=== PATIENT | female | born 1940 | race Caucasian/White ===

== ENCOUNTER → 2019-09-12 09:44 | Outpatient (CLI) | payer MEDICARE, SELFPAY ==
--- NOTE | ~2019-09-12 | XR_ITS ---
XR knee LT 3V 09/12/2019 10:28 INDICATION: Left knee pain PROCEDURE: 3 views left knee COMPARISON: No prior studies for comparison. FINDINGS: Fracture, dislocation or subluxation is not identified. The soft tissues appear within norm al limits. No foreign bodies are identified. Osteopenia. No significant joint effusion. There are ex tensive atherosclerotic changes. IMPRESSION: 1: NO ACUTE BONE OR JOINT ABNORMALITY IDENTIFIED. Reviewed, dictated and finalized at location B. RIALS INTERN
--- NOTE | ~2019-09-12 | XR_ITS ---
EXAMINATION: XR toe 1st RT min 2V EXAM DATE: 09/12/2019 10:28 INDICATION: Initial encounter following injury, with pain of the right first toe. TECHNIQUE: Right first toe frontal, lateral and oblique projections obtained and reviewed. There i s no prior study for comparison. FINDINGS: Bones are osteopenic. Please note that osteopenia limits sensitivity for detecting fractu res by radiographs. There is soft tissue swelling over the medial aspect of the foot. No definite acu te fracture identified. IMPRESSION: Osteopenia limiting sensitivity but no definite acute fracture identified. Soft tissue s welling. Follow-up can be obtained if symptoms persist. Reviewed, dictated and finalized at location A. [employer]ISOR COUNSELING AND GUIDANCE IMPRESSION: Osteopenia limiting sensitivity but no definite acute fracture tulio ntified. Soft tissue swelling. Follow-up can be obtained if symptoms persist.
== END ==
PROVIDERS: PCP Family Medicine; Visit Provider Physician Assistant
DX: M79.674 Pain in right toe(s) (principal); M25.562 Pain in left knee
CPT/HCPCS: 73562; 73660

== ENCOUNTER 2020-01-08 15:42 | Outpatient (CLI) | payer MEDICARE, SELFPAY ==
--- NOTE | ~2020-01-08 | XR_ITS ---
EXAMINATION: XR toe 1st RT min 2V INDICATION: Right first toe pain TECHNIQUE: Three views of the right first toe are obtained. COMPARISON: 09/12/2019 FINDINGS: Sensitivity for fracture is significantly limited by osteopenia. However, there is a suspec marlena nondisplaced fracture of the shaft of the first proximal phalanx. 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 IMPRESSION: 1. Possible nondisplaced fracture of the first proximal phalanx, sensitivity limited by osteopenia. Reviewed, dictated and finalized at location A. IMPRESSION: 1. Possible nondisplaced fracture of the first proximal phalanx, sensitivity li mited by osteopenia.
== END 2020-01-08 15:43 | disposition home or self-care (01) ==
PROVIDERS: PCP Family Medicine; Visit Provider Physician Assistant
DX: M79.674 Pain in right toe(s) (principal)
CPT/HCPCS: 73660

== ENCOUNTER → 2020-11-13 06:37 | Outpatient (CLI) | payer MEDICARE, SELFPAY ==
[2020-11-14 14:53] LABS: SARS-CoV-2 RNA PCR Negative
== END ==
PROVIDERS: PCP Family Medicine; Visit Provider Family Medicine
DX: Z20.822 Contact with and (suspected) exposure to COVID-19 (principal); R05 Cough
CPT/HCPCS: C9803; U0003; U0005

== ENCOUNTER 2021-04-03 14:28 | Emergency (ER) | payer MEDICARE, SELFPAY ==
--- NOTE | ~2021-04-03 | CT_ITS ---
EXAMINATION: CT lumbar spine wo con DATE: 04/03/2021 15:04 INDICATION: Low back pain post fall TECHNIQUE: Computed tomography (CT) of the lumbar spine was performed without intravenous contrast. A utomated exposure control and iterative reconstruction technique were employed. The dose-length produ ct was 429.90 mGy-cm. COMPARISON: None FINDINGS: Alignment is normal. Acute appearing L3 burst fracture with one third anterior and central vertebral body height loss and with 3 mm retropulsion. Remaining vertebral body heights are normal. Disc height s are normal. Emphysema at the visualized lung bases. There is calcified atherosclerosis of the aorta and many of the other arteries. Uterine fibroids including a coarsely calcified degenerated fibroid. The following disc levels are specifically discussed: T11-T12: The disc does not extend beyond the endplate margin. There is mild bilateral facet joint ost eoarthritis. There is no neural foraminal stenosis. There is no central canal stenosis. T12-L1: Disc is bulging. There is mild bilateral facet joint osteoarthritis. There is minimal bilater al neural foraminal stenosis. There is mild central canal stenosis. L1-L2: Disc is bulging. There is mild bilateral facet joint osteoarthritis. There is mild bilateral n eural foraminal stenosis. There is mild to moderate central canal stenosis. L2-L3: Disc is bulging. There is mild right and moderate left facet joint osteoarthritis. There is mi ld bilateral neural foraminal stenosis. There is mild central canal stenosis. L3-L4: Disc is bulging There is mild right and moderate left facet joint osteoarthritis. There is mil d bilateral neural foraminal stenosis. There is mild central canal stenosis. L4-L5: Disc is bulging. There is hypertrophy of the ligamentum flavum. There is mild left and mild to moderate right facet joint osteoarthritis. There is mild bilateral neural foraminal stenosis. There is moderate central canal stenosis. L5-S1: Central disc protrusion. There is mild bilateral facet joint osteoarthritis. There is no neura l foraminal stenosis. There is no central canal stenosis. IMPRESSION: 1. Acute L3 burst fracture with 30% anterior vertebral body height loss. 2. Mild lumbar spondylosis. 3. Emphysema. 4. Fibroid uterus. Reviewed, dictated and finalized at location A.
--- NOTE | ~2021-04-03 | XR_ITS ---
EXAMINATION: XR wrist LT min 3V DATE: 04/03/2021 15:09 INDICATION: Left wrist pain post fall TECHNIQUE: Posteroanterior, ulnar deviation, oblique, and lateral views of the left wrist were obtain ed. COMPARISON: none FINDINGS: Chronic appearing fracture deformity of the distal left radius with 5 degree dorsal tilt of the dista l articular surface. No acute fracture identified. Small corticated ossicle near the tip of the ulnar styloid process which could be either degenerative or heterotopic ossicles related to chronic soft t issue injury potentially triangular fiber cartilage complex. Mild polyarticular osteoarthritis at the distal radioulnar, wrist, midcarpal, first carpometacarpal at each of the metacarpophalangeal joints . Diffuse osteopenia. IMPRESSION: 1. Chronic appearing mild fracture deformity at the distal left radius. No evident acute osseous abno rmality. 2. Mild polyarticular osteoarthritis at the left hand and wrist. Reviewed, dictated and finalized at location A. IMPRESSION: 1. Chronic appearing mild fracture deformity at the distal left radius. No evid ent acute osseous abnormality. 2. Mild polyarticular osteoarthritis at the left hand and wrist.
[2021-04-03 14:28] VITALS: BP 189/99; PULSE 96; RESP 20; TEMP 37.1; O2SAT 100
--- NOTE | 2021-04-03 14:52 | ED.FALL ---
HPI - Fall General Chief Complaint: Fall <Sarah Castellon PA-C - Last Filed: 04/03/21 20:26> Stated Complaint: FALL <DERIAN Tam Last Filed: 04/03/21 20:26> Time Seen by Provider: 04/03/21 14:43 <DERIAN Tam Last Filed: 04/03/21 20:26> Source: patient <DERIAN Tam Last Filed: 04/03/21 20:26> Mode of arrival: EMS <DERIAN Tam Last Filed: 04/03/21 20:26> Limitations: no limitations <DERIAN Tam Last Filed: 04/03/21 20:26> History of Present Illness HPI Narrative: This is a 80 year old female that presents to the ER for low back pain after a fall today. Reports she lost her footing and fell onto her bottom. Reports trying to catch herself with her left wrist. Reports pain to the left wrist as well. Denies hitting her head, loss of consciousness, prodromal symptoms, saddle anesthesia or bowel/bladder incontinence. <DERIAN Tam Last Filed: 04/03/21 20:26> Related Data Home Medications: Home Medications Medication Instructions Recorded Confirmed aspirin 81 mg tablet,delayed 81 mg PO DAILY 07/29/19 03/04/21 release cholecalciferol (vitamin D3) 50 2,000 unit PO DAILY 07/29/19 03/04/21 mcg (2,000 unit) capsule <Sarah Castellon PA-C - Last Filed: 04/03/21 20:26> Allergies/Adverse Reactions: Allergies Allergy/AdvReac Type Severity Reaction Status Date / Time latex Allergy Unknown rash Verified 04/03/21 14:35 <DERIAN Tam Last Filed: 04/03/21 20:26> Review of Systems Review of Systems: CONSTITUTIONAL: Denies fever MUSCULOSKELETAL: Reports back pain, joint pain, and myalgia. NEUROLOGIC: Denies numbness, or weakness. <DERIAN Tam Last Filed: 04/03/21 20:26> All systems reviewed & are unremarkable except as noted in HPI and below <Sarah Castellon PA-C - Last Filed: 04/03/21 20:26> [facility] Past Medical History Medical History: Medical History (Updated 04/05/21 @ 00:00 by Betty Welch) Chronic hypoxemic respiratory failure Chronic kidney disease, stage 3 (moderate) Chronic obstructive pulmonary disease Colon cancer (~2008) Essential (primary) hypertension Essential tremor Mixed hyperlipidemia Peripheral vascular disease, unspecified Rectal adenocarcinoma (~04/08/09) <Sarah Castellon PA-C - Last Filed: 04/03/21 20:26> Family History Family History: Family History Sibling Family history of lymphoma Other Family history of cardiovascular disease Family history of elevated blood lipids Family history of lung disease <Sarah Castellon PA-C - Last Filed: 04/03/21 20:26> Social History Social History: Social History Smoking packs per day: 0.5 Smoking cigarettes per day: 10.0 Years smoked: 30 Smoking pack-years: 15.00 Smoking end date: 07/09/07 Alcohol intake: never <DERIAN Tam Last Filed: 04/03/21 20:26> Exam Narrative: GENERAL: Well-appearing, well-nourished, and in no acute distress. HEAD: Normocephalic, atraumatic. EYES: PERRLA and EOMI. ENT: Nares clear, no rhinorrhea or epistaxis. Mucous membranes moist. Oropharynx without tonsillar hypertrophy exudate or other lesions. Bilateral TMs pearly mireles non-bulging NECK: Supple. No adenopathy or masses. No midline cervical spine tenderness CHEST: Clear to auscultation. No respiratory distress. No wheezes rales or rhonchi HEART: Regular rate and rhythm. No murmur heard. Normal peripheral pulses. BACK: No midline thoracic spine tenderness. Tender to palpation of midline lumbar spine EXTREMITIES: Normal range of motion. No edema. Strength equal in bilateral lower extremities (5/5) SKIN: Warm, dry, no rash. NEURO: No focal deficits. Alert and oriented x3. PSYCH: Normal mood and affect <Sarah Castellon PA-C - Last Filed: 04/03/21 20:26> Course
[2021-04-03] MEDS: MORPHINE SULFATE (*CRX) 2 MG/ML INJ IV PUSH (19:06)
[2021-04-03] MEDS: ONDANSETRON INJ 4 MG/2 ML VIAL IV PUSH (19:06)
--- NOTE | 2021-04-03 19:21 | PC.NURSE ---
Addendum entered by Casie Perez 04/03/21 19:39: [facility] - no truck available [facility] Original Note: [facility] no truck available
--- NOTE | 2021-04-03 19:52 | PC.NURSE ---
called [facility] - no truck available
[2021-04-03 20:00] VITALS: BP 176/80; PULSE 88; RESP 18; O2SAT 100
[2021-04-03 21:36] VITALS: BP 184/76; PULSE 76; RESP 18; O2SAT 100
[2021-04-03] MEDS: IBUPROFEN IV 400 MG in SODIUM CHLORIDE 0.9% IV 100 ML 200 MG IVPB (22:32)
--- NOTE | 2021-04-03 23:20 | PC.NURSE ---
Assumed care of pt at this time. Pt alert and supine on stretcher. On 4L NC. Pt updated on POC.
--- NOTE | 2021-04-04 00:23 | PC.NURSE ---
called [facility] for ETA update. ETA [id number]
[2021-04-04 01:06] VITALS: BP 151/84; PULSE 89; RESP 18; O2SAT 94
--- NOTE | 2021-04-04 01:43 | PC.NURSE ---
[facility] called with ETA update of [id number]
--- NOTE | 2021-04-04 02:00 | PC.NURSE ---
called [facility] to request transport. [facility] accepte. Unit on the way.
--- NOTE | 2021-04-04 02:05 | PC.NURSE ---
[facility] called with ETA update of 0601
--- NOTE | 2021-04-04 02:06 | PC.NURSE ---
cancelled [facility]
--- NOTE | 2021-04-04 02:35 | PC.NURSE ---
[facility] here.
[2021-04-04 02:49] VITALS: BP 163/89; PULSE 82; RESP 16; O2SAT 96
== END 2021-04-04 02:55 | disposition short-term general hospital (02) ==
PROVIDERS: Emergency Provider Emergency Medicine; PCP Family Medicine
DX: S32.031A Stable burst fracture of third lumbar vertebra, initial encounter for closed fracture (principal); S63.502A Unspecified sprain of left wrist, initial encounter; I12.9 Hypertensive chronic kidney disease with stage 1 through stage 4 chronic kidney disease, or unspecified chronic kidney disease; N18.30 Chronic kidney disease, stage 3 unspecified; J44.9 Chronic obstructive pulmonary disease, unspecified; E78.2 Mixed hyperlipidemia; I73.9 Peripheral vascular disease, unspecified; F17.210 Nicotine dependence, cigarettes, uncomplicated; W19.XXXA Unspecified fall, initial encounter
CPT/HCPCS: 72131; 73110; 96365; 96375; 99285; J0131; J1741; J2270; J2405

== ENCOUNTER → 2021-06-14 12:07 | Outpatient (CLI) | payer MEDICARE, SELFPAY ==
--- NOTE | ~2021-06-14 | XR_ITS ---
EXAMINATION: XR shoulder RT min 2V EXAM DATE: 06/14/2021 12:31 INDICATION: Pain in right shoulder, Unspecified fall, initial encounter . Initial encounter. TECHNIQUE: The following right shoulder projections obtained: frontal projection with internal rotati on, frontal projection with external rotation, Grashey, and axillary (4+ views). There is no prior s tudy for comparison. FINDINGS: There is acute closed posttraumatic nondisplaced fracture of the right humeral greater tube rosity. No definite fracture across the neck of the humerus. Acromioclavicular joint is unremarkable. No dislocation. Right lung apex clear. IMPRESSION: Acute nondisplaced right humeral greater tuberosity fracture. Reviewed, dictated and finalized at location A. RONMENTAL CHANGE ANALYST
== END ==
PROVIDERS: PCP Family Medicine; Visit Provider Family Medicine
DX: S42.254A Nondisplaced fracture of greater tuberosity of right humerus, initial encounter for closed fracture (principal); X58.XXXA Exposure to other specified factors, initial encounter
CPT/HCPCS: 73030

== ENCOUNTER 2021-06-28 10:19 | Outpatient (CLI) | payer MEDICARE, SELFPAY ==
[2021-06-28 14:19] LABS: Vitamin D 25 Hydroxy 49.4 ng/mL
== END 2021-06-28 10:20 | disposition home or self-care (01) ==
PROVIDERS: PCP Family Medicine; Visit Provider Orthopaedic Surgery
DX: E55.9 Vitamin D deficiency, unspecified (principal)
CPT/HCPCS: 36415; 82306

== ENCOUNTER 2021-10-04 14:46 | Outpatient (CLI) | payer MEDICARE, SELFPAY ==
--- NOTE | ~2021-10-04 | US_ITS ---
EXAMINATION: US arterial ankle brachial ind DATE: 10/04/2021 15:39 INDICATION: Tingling of the feet. Trophic changes of the lower extremities. Smoker. Medicated hyperte nsion. TECHNIQUE: Segmental pressures and plethysmographic and Doppler waveforms of the brachial and lower e xtremity arteries were obtained. COMPARISON: None. FINDINGS: Right and left brachial artery pressures of 155 mm Hg and 158 mm Hg, respectively, are concordant (no rmal difference <= 30 mmHg). The right ankle-brachial index (ALEX) is 0.56 (normal >= 0.9-1.0). The right great toe-brachial index (TBI) is 0.06 (normal >= 0.65). Arterial Doppler waveforms are monophasic. The left ALEX is 1.04. The left TBI is 0.40. Arterial Doppler waveforms are biphasic. IMPRESSION: Abnormally low right ALEX of 0.56 Severely decreased right TBI of 0.06 Normal left ALEX 1.04 Moderately depressed left TBI of 0.40 Reviewed, dictated and finalized at Location A. Reviewed, dictated and finalized at location A.
== END 2021-10-04 14:47 | disposition home or self-care (01) ==
LOC: ANHIMG 14:51
PROVIDERS: PCP Family Medicine; Visit Provider Family Medicine
DX: M79.89 Other specified soft tissue disorders (principal); Z87.891 Personal history of nicotine dependence; R27.0 Ataxia, unspecified
CPT/HCPCS: 93922

== ENCOUNTER 2022-02-03 14:13 | Outpatient (CLI) | payer MEDICARE, SELFPAY ==
--- NOTE | ~2022-02-03 | US_ITS ---
EXAMINATION:US venous doppler LE RT INDICATION:Soft tissue disorder. TECHNIQUE: Multiple grayscale, color flow and Doppler images of the right lower extremity deep venous systems were obtained and reviewed. COMPARISON:No prior studies for comparison. FINDINGS: The common femoral, superficial femoral and popliteal veins demonstrate normal respiratory variation, augmentation and compressibility. Color flow is also seen within the posterior tibial, pe roneal, greater saphenous and profunda veins. IMPRESSION: 1: No lower extremity deep venous thrombosis. Reviewed, dictated and finalized at location A.
== END 2022-02-03 14:14 | disposition home or self-care (01) ==
PROVIDERS: PCP Family Medicine; Visit Provider Family Medicine
DX: M79.89 Other specified soft tissue disorders (principal)
CPT/HCPCS: 93971

== ENCOUNTER 2023-03-24 11:31 | Emergency (ER) | payer MEDICARE, SELFPAY ==
--- NOTE | ~2023-03-24 | XR_ITS ---
XR foot RT min 3V DATE: 03/24/2023 12:11 INDICATION: Injury to the second through fourth toes TECHNIQUE: 4 views of right foot COMPARISON: None FINDINGS: There is soft tissue swelling of the dorsum of the forefoot. There is diffuse prominent osteopenia. There is a linear oblique nondisplaced fracture of the shaft of the proximal phalanx of the third dig it. Mild plantar and posterior calcaneal enthesopathy. IMPRESSION: Nondisplaced fracture of the shaft of the proximal phalanx of the third digit Prominent diffuse osteopenia Mild plantar and posterior calcaneal enthesopathy Reviewed, dictated and finalized at location A. IMPRESSION: Nondisplaced fracture of the shaft of the proximal phalanx of the t hird digit Prominent diffuse osteopenia Mild plantar and posterior calcaneal enthesopathy
[2023-03-24 11:51] VITALS: BP 164/78; PULSE 102; RESP 16; TEMP 36.8; O2SAT 93
--- NOTE | 2023-03-24 12:03 | ED.LOWEXIN ---
HPI - Extremity Injury (Lower) General Chief Complaint: Extremity Injury, Lower Stated Complaint: Pain in toes on right foot Time Seen by Provider: 03/24/23 12:03 Source: patient Mode of arrival: ambulatory Limitations: no limitations History of Present Illness HPI Narrative: 82-year-old female presents with complaint of pain to right foot for approximately 3 days. Patient states that she stubbed her right on a rug in her bedroom. Patient is will trim bound. Only stands and pivots for transferring. Reports pain with standing. At rest has no pain. Mild swelling. Patient here with her son. All systems reviewed and negative except as noted above. Related Data Home Medications Medication Instructions Recorded Confirmed aspirin 81 mg tablet,delayed 81 mg PO DAILY 07/29/19 03/24/23 release (Aspir-) cholecalciferol (vitamin D3) 50 2,000 unit PO DAILY 07/29/19 03/24/23 mcg (2,000 unit) capsule docusate sodium 100 mg capsule 100 mg PO DAILY 03/24/23 03/24/23 Allergies Allergy/AdvReac Type Severity Reaction Status Date / Time latex Allergy Unknown rash Verified 03/24/23 11:47 Review of Systems Review of Systems: CONSTITUTIONAL: Denies fever, chills, or sweats. EYES: Denies visual changes, redness, or discharge. ENT: Denies rhinorrhea, congestion, sore throat, or otalgia. CARDIOVASCULAR: Denies chest pain, palpitations, or edema. RESPIRATORY: Denies cough or dyspnea. GASTROINTESTINAL: Denies abdominal pain, nausea, vomiting, or diarrhea. GENITOURINARY: Denies dysuria or hematuria. SKIN: Denies rash or itching. MUSCULOSKELETAL: Denies back pain, joint pain, or myalgia. Reports pain to right foot. NEUROLOGIC: Denies headache, numbness, or weakness. PSYCHIATRIC: Denies anxiety or depression. All other systems reviewed are negative, except as documented in HPI. [facility] Past Medical History Medical History (Updated 03/24/23 @ 12:42 by Bessie Barillas NP) Chronic hypoxemic respiratory failure Chronic kidney disease, stage 3 (moderate) Chronic obstructive pulmonary disease Colon cancer (~2008) Essential (primary) hypertension Essential tremor Mixed hyperlipidemia Peripheral vascular disease, unspecified Rectal adenocarcinoma (~04/08/09) Strain of right knee Family History Family History Sibling Family history of lymphoma Other Family history of cardiovascular disease Family history of elevated blood lipids Family history of lung disease Social History Social History Social History: Caffeine- decaf coffee Smoking packs per day: 0.5 Smoking cigarettes per day: 10.0 Years smoked: 30 Smoking pack-years: 15.00 Smoking status: Former smoker Smoking end date: 07/09/07 Alcohol intake: never Substance use: never Lack of Transportation: No Lack of Food: Never True Current Housing: I Have Housing Concerned About Future Housing: No Difficulty Paying Gas/Electric Bills: No Difficulty Paying for Meds: No Currently Unemployed: No Education: Master's Degree or Higher Difficulty w/ Childcare or Family Care: No Comments At time of signature, agree with nursing past medical, surgical, social and family history. There is no relevant family history pertinent to the presenting complaint. Exam Narrative: GENERAL: This is a well-nourished, well-developed patient, in no apparent distress. HEAD: normocephalic, atraumatic. EYES: PERRL. Sclera clear/white. Vision is grossly intact. EARS: External ears normal NOSE: External nose normal NECK: Neck supple, non-tender without lymphadenopathy, masses or thyromegaly. CARDIOVASCULAR: Regular rate and rhythm without murmurs, gallops, or rubs. RESPIRATORY: Clear to auscultation. Breath sounds equal bilaterally. No wheezes, rales, or rhonchi. SKIN: warm, Dry, intact with no suspicious lesions or rash, good texture and tu
== END 2023-03-24 12:46 | disposition home or self-care (01) ==
PROVIDERS: Emergency Provider Nurse Practitioner Family; PCP Family Medicine
DX: S92.514A Nondisplaced fracture of proximal phalanx of right lesser toe(s), initial encounter for closed fracture (principal); W22.8XXA Striking against or struck by other objects, initial encounter; Z79.82 Long term (current) use of aspirin; I12.9 Hypertensive chronic kidney disease with stage 1 through stage 4 chronic kidney disease, or unspecified chronic kidney disease; N18.30 Chronic kidney disease, stage 3 unspecified; J44.9 Chronic obstructive pulmonary disease, unspecified; E78.2 Mixed hyperlipidemia; I73.9 Peripheral vascular disease, unspecified; Z85.048 Personal history of other malignant neoplasm of rectum, rectosigmoid junction, and anus
CPT/HCPCS: 73630; 99213; G0463